=== PATIENT | male | born 1990 | race Caucasian/White ===

== ENCOUNTER 2017-06-12 19:24 | Emergency (ER) | payer OTHER ==
[~2017-06-12] VITALS: Ht 198.1 cm; Wt 126.1 kg
[2017-06-12 19:36] VITALS: BP 147/74
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
[2017-06-12] MEDS ORDERED: IBUPROFEN800 M1 PO (20:02)
[2017-06-12] MEDS ORDERED: ROBAXIN-750750 M1 PO (20:02)
== END 2017-06-12 20:06 ==
LOC: ERH 19:24
DX: M54.2 Cervicalgia (principal); M54.6 Pain in thoracic spine; R51 Headache; V89.2XXA Person injured in unspecified motor-vehicle accident, traffic, initial encounter